=== PATIENT | female | born 1990 | race Hispanic/Latino ===

== ENCOUNTER 2017-12-26 12:27 | Emergency (ER) | payer MEDICAID, OTHER ==
[2017-12-26] MEDS ORDERED: IBUPROFEN 600 MG TABLET ONE (13:38)
== END 2017-12-26 14:20 | disposition home or self-care (01) ==
LOC: EDH 12:27
DX: M23.91 Unspecified internal derangement of right knee (principal); Z88.1 Allergy status to other antibiotic agents; Z72.0 Tobacco use
CPT/HCPCS: 29505; 73562